=== PATIENT | male | born 1985 | race Caucasian/White ===

== ENCOUNTER 2018-05-24 23:02 | Emergency (ER) | payer BC ==
[2018-05-24] MEDS ORDERED: TORAdol 30 mg Injection IV ONE (23:20)
[2018-05-24] MEDS ORDERED: Sodium Chloride 0.9% 1000 ML 1,000 ML IV STA (23:20)
[2018-05-24] MEDS ORDERED: Sodium Chloride 0.9% 1000 ML 1,000 ML ONE (23:20)
[2018-05-24] MEDS ORDERED: Zofran 4 MG/2 ML VIAL ONE (23:20)
[2018-05-24] MEDS ORDERED: TORAdol 30 mg Injection ONE (23:20)
[2018-05-24] MEDS ORDERED: Zofran 4 MG/2 ML VIAL IV ONE (23:20)
[2018-05-24] MEDS ORDERED: Hydromorphone 1 mg/ml Ampule IV ONE (23:25)
[2018-05-24] MEDS ORDERED: Hydromorphone 1 mg/ml Ampule ONE (23:29)
[2018-05-24 23:32] LABS: BASOPHIL % 0.2 % (0.0-0.4); Basophil (Absolute #) 0.02 (0-0.4); Eosinophil % 2.3 % (0.00-5.0); Granulocytes % 51.5 % (36.0-66.0); Hematocrit 42.9 % (42-50); Hemoglobin 14.4 gm/dl (12.5-18.0); Lymphocyte (Absolute #) 3.27 (1.0-4.6); Lymphocytes % 37.5 % (24.0-44.0); Mean Cell Volume 84.8 fl (78-100); Mean Corpuscular Hemoglobin 28.5 pg (26-32); Mean Corpuscular Hgb Concent. 33.6 g/dl (32-36); Mean Platelet Volume 9.7 fl (6-9.5); Monocyte (Absolute #) 0.74 (0.0-1.3); Monocytes % 8.5 % (0.0-12.0); Platelet Count 278 K/mm3 (150-450); Red Blood Count 5.06 M/mm3 (4.1-5.6); Red Cell Distribution Width 12.8 % (11.5-14.0); White Blood Count 8.7 K/mm3 (4.0-10.5)
--- NOTE | 2018-05-24 23:32 | ERPHSYRPT ---
- History of Present Illness Time Seen by Provider: 05/24/18 23:15 Source: patient Exam Limitations: clinical condition Patient Subjective Stated Complaint: pt states he began having rt side pain approx 30 minutes prior to arrival in er. Triage Nursing Assessment: pt alert and oreinted, answers questions approp. pt ambulatory with steady gait noted. respirations nonlabored with lungs cta. abd soft and nontender to light palpation. Physician History: PATIENT COMPLAINS OF HAVING ACUTE ONSET OF DYSURIA ASSOCIATED WITH RIGHT FLANK PAIN 30 MINUTES PRIOR TO ARRIVAL. HE STATES THE PAIN RADIATES FROM HIS RIGHT FLANK TO HIS RIGHT TESTICLE. HAS ASSOCIATED NAUSEA, DENIES VOMITING, FEVER, CHILLS. Timing/Duration: today Activites at Onset: none Quality: sharpness, stabbing Onset Location: right flank Pain Radiation: right flank (TO TESTICAL) Severity of Pain-Max: severe Severity of Pain-Current: severe Modifying Factors: Improves With: urinating, vomiting Prior abdominal problems: none Sexual intercourse history: non-contributory Allergies/Adverse Reactions: No Known Drug Allergies Allergy (Verified 05/24/18 23:18) Hx Tetanus, Diphtheria Vaccination/Date Given: Yes Hx Influenza Vaccination/Date Given: Yes Hx Pneumococcal Vaccination/Date Given: No Immunizations Up to Date: Yes - Past Medical History Pertinent Past Medical History: No - Past Surgical History Past Surgical History: Yes Male Surgical History: Vasectomy - Social History Smoking Status: Former smoker Exposure to second hand smoke: No Drug Use: none Patient Lives Alone: No - Review of Systems Constitutional: No Fever, No Chills Eyes: No Symptoms Ears, Nose, & Throat: No Symptoms Respiratory: No Cough, No Dyspnea Cardiac: No Chest Pain, No Edema, No Syncope Abdominal/Gastrointestinal: Abdominal Pain, Nausea, No Vomiting, No Diarrhea Genitourinary Symptoms: Flank Pain, Testicle Pain, No Dysuria Musculoskeletal: No Symptoms, No Back Pain, No Neck Pain Skin: No Symptoms, No Rash Neurological: No Dizziness, No Focal Weakness, No Sensory Changes Psychological: No Symptoms Endocrine: No Symptoms All Other Systems: Reviewed and Negative - Nursing Vital Signs Nursing Vital Signs: Initial Vital Signs Temperature 97.4 F 05/24/18 23:09 Pulse Rate 62 05/24/18 23:09 Respiratory Rate 18 05/24/18 23:09 Blood Pressure 142/90 05/24/18 23:09 O2 Sat by Pulse Oximetry 99 05/24/18 23:09 Pain Scale Pain Intensity 2 - Physical Exam General Appearance: moderate distress Eye Exam: PERRL/EOMI Ears, Nose, Throat Exam: pharynx normal, moist mucous membranes Neck Exam: normal inspection, supple Respiratory Exam: normal breath sounds, lungs clear Cardiovascular Exam: regular rate/rhythm, No edema Gastrointestinal/Abdomen Exam: soft, normal bowel sounds, tenderness (RIGHT LATERAL TO SUPRAPUBIC TENDERNESS) Back Exam: CVA tenderness (RIGHT) Extremity Exam: contusions Neurologic Exam: alert, oriented x 3 Skin Exam: normal color, warm SpO2 Interpretation: normal SpO2: 99 Oxygen Delivery: Room Air - CT Exams Abdomen/Pelvis CT Interpretation: Tele-radiologist Report (NORMAL APPENDIX, MILD PROMINENCE OF THE RIGHT URETER WITHOUT OBSTRUCTING CALULUS, THERE IS A 4MM CALCULUS IN THE DEPENDENT URINARY BLADDER) Ordered Tests: Active Orders 24 hr Category Date Time Status IV Insertion STAT Care 05/24/18 23:20 Active ABDOMEN AND PELVIS W/0 CONTRAS [CT] Stat Exams 05/24/18 23:20 Taken BMP Stat Lab 05/24/18 23:20 Completed CBC W DIFF Stat Lab 05/24/18 23:20 Completed UA W/RFX UR CULTURE Stat Lab 05/24/18 23:20 Completed Medication Summary Discontinued Medications Generic Name Dose Route Start Last Admin Trade Name Jaclyn PRN Reason Stop Dose Admin Hydrocodone Bitart/Acetaminophen 2 tab 05/25/18 00:23 05/25/18 00:29 [place] 10/325 Mg Tablet PO 05/25/18 00:24 2 tab SENT HOME W/ PATIENT ONE Administration Hydrocodone Bitart/Acetaminophen Confirm 05/25/18 00:27 [place] 10/325 Mg Tablet Administered 05/25/18 00:28 Dose 2 tab .ROUTE .STK-MED ONE Hydromorphone HCl 1 mg 05/24/18 23:25 05/24/18 23:30 Hydromorphone 1 Mg/Ml Ampule IV 05/24/18 23:26 1 mg STAT ONE Administration Hydromorphone HCl Confirm 05/24/18 23:29 Hydromorphone 1 Mg/Ml Ampule Administered 05/24/18 23:30 Dose 1 mg .ROUTE .STK-MED ONE Sodium Chloride 1,000 mls @ 999 mls/hr 05/24/18 23:20 05/24/18 23:28 Sodium Chloride 0.9% 1000 Ml IV 05/25/18 00:20 999 mls/hr .Q1H1M STA Administration Sodium Chloride Confirm 05/24/18 23:20 Sodium Chloride 0.9% 1000 Ml Administered 05/24/18 23:21 Dose 1,000 mls @ ud .ROUTE .STK-MED ONE Ketorolac Tromethamine 30 mg 05/24/18 23:20 05/24/18 23:27 Toradol 30 Mg Injection IV 05/24/18 23:21 30 mg STAT ONE Administration Ketorolac Tromethamine Confirm 05/24/18 23:20 Toradol 30 Mg Injection Administered 05/24/18 23:21 Dose 30 mg .ROUTE .STK-MED ONE Ondansetron HCl 4 mg 05/24/18 23:20 05/24/18 23:27 Zofran 4 Mg/2 Ml Vial IV 05/24/18 23:21 4 mg STAT ONE Administration Ondansetron HCl Confirm 05/24/18 23:20 Zofran 4 Mg/2 Ml Vial Administered 05/24/18 23:21 Dose 4 mg .ROUTE .STK-MED ONE Lab/Rad Data: Laboratory Result Diagrams 05/24/18 23:20 05/24/18 23:20 Laboratory Results 05/24/18 05/24/18 05/24/18 Range/Units 23:20 23:20 23:20 WBC 8.7 (4.0-10.5) K/mm3 RBC 5.06 (4.1-5.6) M/mm3 Hgb 14.4 (12.5-18.0) gm/dl Hct 42.9 (42-50) % MCV 84.8 (78-100) fl MCH 28.5 (26-32) pg MCHC 33.6 (32-36) g/dl RDW 12.8 (11.5-14.0) % Plt Count 278 (150-450) K/mm3 MPV 9.7 H (6-9.5) fl Gran % 51.5 (36.0-66.0) % Eos # (Auto) 0.20 (0-0.5) Absolute Lymphs (auto) 3.27 (1.0-4.6) Absolute Monos (auto) 0.74 (0.0-1.3) Lymphocytes % 37.5 (24.0-44.0) % Monocytes % 8.5 (0.0-12.0) % Eosinophils % 2.3 (0.00-5.0) % Basophils % 0.2 (0.0-0.4) % Absolute Granulocytes 4.50 (1.4-6.9) Basophils # 0.02 (0-0.4) Sodium 140 (137-145) mmol/L Potassium 3.4 L (3.5-5.1) mmol/L Chloride 102 (98-107) mmol/L Carbon Dioxide 29 (22-30) mmol/L Anion Gap 12.3 (5-15) MEQ/L BUN 15 (9-20) mg/dL Creatinine 0.97 (0.66-1.25) mg/dL Estimated GFR > 60.0 ML/MIN Glucose 111 H (74-106) mg/dL Calcium 9.4 (8.4-10.2) mg/dL Urine Color YELLOW (YELLOW) Urine Appearance TURBID (CLEAR) Urine pH 7.0 (5-6) Ur Specific [place] 1.021 (1.005-1.025) Urine Protein NEGATIVE (Negative) Urine Ketones NEGATIVE (NEGATIVE) Urine Blood NEGATIVE (0-5) Johnathan/ul Urine Nitrite NEGATIVE (NEGATIVE) Urine Bilirubin NEGATIVE (NEGATIVE) Urine Urobilinogen 4 (0-1) mg/dL Ur Leukocyte Esterase NEGATIVE (NEGATIVE) Urine WBC (Auto) 0-2 (0-5) /HPF Urine RBC (Auto) 0-2 (0-2) /HPF U Epithel Cells (Auto) NONE (FEW) /HPF Urine Bacteria (Auto) NONE (NEGATIVE) /HPF Amorphous Crystals MANY (NEGATIVE) /HPF Other Casts (Auto) 2-5 (NEGATIVE) /LPF Urine Mucus (Auto) SLIGHT (NEGATIVE) /HPF Urine Culture Reflexed NO (NO) Urine Glucose NEGATIVE (NEGATIVE) mg/dL - Progress Progress: improved Progress Note: 05/24/18 23:30 IV NORMAL SALINE AND 1000 Ml/HOUR, ZOFRAN 4 MG, TORADOL 30MG, DILAUDID 1MG IV Counseled pt/family regarding: lab results, diagnosis, rad results - Departure Time of Disposition: 00:40 Departure Disposition: Home Clinical Impression: URINARY BLADDER CALCULUS, RIGHT RENAL COLIC Condition: Stable Critical Care Time: No Referrals: DESEAN LANGLEY MD [Primary Care Provider] - Additional Instructions: STRAIN YOUR URINE USING A STRAINER FOR 4 DAYS. [place] 10/325 EVERY 6 HOURS NEEDED FOR PAIN. ZOFRAN 4MG EVERY 6 HOURS FOR NAUSEA. CONSULT YOUR PRIMARY CARE PROVIDER FOR FOLLOWUP IN 1 WEEK. RETURN TO EMERGENCY ROOM FOR RECURRENCE OF SEVERE PAIN. CONSULT UROLOGIST DR ESTRADA FOR FOLLOWUP . Prescriptions: Hydrocodone/APAP 10/325 mg [[place] 10/325 MG Tablet] 1 tab PO Q6H PRN PRN 3 Days #10 tablet MDD 4 PRN Reason: Pain Ondansetron ODT 4 MG [Zofran Odt 4 mg] 4 mg PO Q6H PRN PRN #6 tab.rapdis PRN Reason: Nausea
[2018-05-24 23:48] LABS: ANION GAP 12.3 MEQ/L (5-15); Amourphous Crystal MANY /HPF (NEGATIVE); Appearance TURBID (CLEAR); BLOOD UREA NITROGEN 15 mg/dL (9-20); Bilirubin NEGATIVE (NEGATIVE); Blood NEGATIVE Ery/ul (0-5); CHLORIDE 102 mmol/L (98-107); Calcium 9.4 mg/dL (8.4-10.2); Carbon Dioxide 29 mmol/L (22-30); Creatinine 1 0.97 mg/dL (0.66-1.25); Glucose 111 mg/dL (74-106); Glucose NEGATIVE (NEGATIVE); Ketones NEGATIVE (NEGATIVE); Leukocyte Esterase NEGATIVE (NEGATIVE); Mucus SLIGHT /HPF (NEGATIVE); Nitrite NEGATIVE (NEGATIVE); Potassium 3.4 mmol/L (3.5-5.1); Protein,Urine Dip NEGATIVE (Negative); RBC 0-2 /HPF (0-2); SODIUM 140 mmol/L (137-145); Specific Gravity 1.021 (1.005-1.025); Urobilinogen 4 mg/dL (0-1); WBC 0-2 /HPF (0-5)
[2018-05-25] MEDS ORDERED: Norco 10/325 MG Tablet PO ONE (00:23)
[2018-05-25] MEDS ORDERED: Norco 10/325 MG Tablet ONE (00:27)
[2018-05-25 01:03] VITALS: BP 110/63; PULSE 58; O2SAT 98
--- NOTE | 2018-05-25 07:31 | XRAY ---
Indication: Right flank pain and nausea. Multiple contiguous axial images obtained through the abdomen and pelvis without contrast using renal stone protocol. Comparison: None Lung bases demonstrates mild bibasilar dependent atelectasis and tiny left posterior gutter calcified granuloma. Heart is not enlarged. 3-4 mm urinary bladder calculus on the right. Mild right hydronephrosis and hydroureter consistent with recent passage of said calculus. No other calculus. Stomach is distended with food/fluid. Noncontrasted stomach and bowel loops appear nonobstructed. Normal appendix. Mild diffuse colonic fecal debris throughout. No free fluid/air. Remaining liver, gallbladder, pancreas, spleen, general glands, kidneys, ureters, bladder, and aorta appear unremarkable for noncontrast exam. Osseous structures intact. No ventral or inguinal hernias. Impression: 1. 3-4 mm urinary bladder calculus with mild right hydronephrosis/hydroureter from passage of calculus. 2. Incidental fecal stasis without obstruction. Comment: Preliminary interpretation was made by [facility]. No critical discrepancy. CTDI 22.73
== END 2018-05-25 01:15 | disposition home or self-care (01) ==
LOC: ED 23:02
DX: N21.0 Calculus in bladder (principal); N23 Unspecified renal colic; R30.0 Dysuria; R10.9 Unspecified abdominal pain; R11.0 Nausea
CPT/HCPCS: 36000; 36415; 74176; 80048; 81001; 85025; 96360; 96374; 96375; 99284; J1170; J1885; J2405; A9270-GY